=== PATIENT | male | born 1960 | race Caucasian/White ===

== ENCOUNTER 2017-11-19 11:36 | Inpatient (IN) ==
[2017-11-19] MEDS ORDERED: Nitroglycerin 0.4 MG TAB.SUBL SL ONE (11:48)
[2017-11-19] MEDS ORDERED: Furosemide 40 MG/4 ML VIAL IVP ONE (11:48)
[2017-11-19] MEDS ORDERED: Ipratropium/Albuterol Neb 3 ML ONE (11:53)
[2017-11-19] MEDS ORDERED: Ipratropium/Albuterol Neb 3 ML IH ONE (11:53)
--- NOTE | 2017-11-19 11:57 | Emergency Department Note ---
Disposition Clinical Impression: Hypoxia, COPD exacerbation, Respiratory distress Disposition: Admitted As Inpatient Condition: Good Forms: ED Satisfaction Letter Time of Disposition: 13:42 SOB HPI - General Chief Complaint: ED Shortness of Breath/Dyspnea Stated Complaint: RO Time Seen by Provider: 11/19/17 11:39 Source: patient, EMS Limitations: no limitations Nursing Notes Reviewed: Yes Vital Signs Reviewed: Yes - History of Present Illness 57 year old male presents to the ED with complaints of dyspnea from urfent care. He has never been fomrally diagnosed with CHF although he appears fluid overloaded with rhonchi present on exam. I took report from Dr. Rodrigues and states that his CXR for them was negtive and flu negative. Margarita fantes he has chronic cellulitis on his LLE and it is at [facility]. He denies fevers, nausea, vomitting, but was hypoxic for the squad at 80% and appears in mild distress although he is able t start sentences he beomes dyspneic while talking. Currently at 92% on NRB. He does have a history of COPD and wears a Cpap at night only. morbidly obese - Related Data Home Medications Medication Instructions Recorded Confirmed Albuterol Neb [Proventil Neb] 2.5 mg IH TID 11/19/17 11/19/17 Aspirin [Lo-Dose Aspirin EC] 81 mg PO DAILY 11/19/17 11/19/17 Furosemide [Lasix] 20 mg PO BID 11/19/17 11/19/17 Lisinopril [Zestril] 20 mg PO DAILY 11/19/17 11/19/17 Simvastatin [Zocor] 20 mg PO HS 11/19/17 11/19/17 Tramadol HCl [Ultram] 50 mg PO QID PRN 11/19/17 11/19/17 metFORMIN [Glucophage] 500 mg PO BIDWM 11/19/17 11/19/17 Allergies Allergy/AdvReac Type Severity Reaction Status Date / Time No Known Allergies Allergy Verified 11/19/17 10:13 Constitutional: Denies: fever, chills, weakness, weight change Eyes: Denies: eye pain, eye discharge, vision change ENT ED: Denies: ear pain, throat pain, dental pain, hearing loss, epistaxis, congestion, dysphagia Cardiovascular: Denies: chest pain, palpitations, dyspnea on exertion, edema, syncope Respiratory: Reports: dyspnea. Denies: cough, wheezes, hemoptysis, stridor Gastrointestinal: Denies: abdominal pain, nausea, vomiting, diarrhea, constipation, hematemesis, melena, hematochezia Genitourinary: Denies: urgency, dysuria, frequency, hematuria Musculoskeletal: Denies: back pain, neck pain, arthralgia, myalgia Integumentary: Denies: rash, abrasion, lesions Neurological: Denies: headache, weakness, numbness, paresthesias, confusion, abnormal gait, vertigo Psychiatric: Denies: anxiety, depression, suicidal thoughts, homicidal thoughts , auditory hallucinations, visual hallucinations Endocrine: Denies: fatigue Hematological/Lymphatic: Denies: easy bleeding, easy bruising Allergic/Immunologic: Denies: facial swelling, urticaria Past Medical History - Past Medical History Medical history: Reports: arthritis, COPD, other Psychiatric history: Reports: no psych history - Social History Smoking Status: Former smoker Smokeless Tobacco Status: Yes Alcohol use: Reports: none Drug use: Reports: none Physical Exam - General Limitations: no limitations General appearance: alert, in distress, obese - Head Head exam: atraumatic, normocephalic, normal inspection - Eye Eye exam: Present: normal appearance, PERRL, EOMI - Expanded Eye Exam Pupils: Bilateral: regular, round, reactive - ENT ENT exam: normal exam, normal oropharynx, mucous membranes moist - Expanded ENT Exam External ear exam: Present: normal external inspection Mouth exam: Present: normal external inspection Teeth exam: Present: normal inspection Throat exam: Present: normal inspection - Neck Neck exam: Present: normal inspection, full ROM, trachea midline - Chest Chest inspection: Present: normal inspection, symmetric chest wall rise - Respiratory Respiratory exam: Present: normal lung sounds bilaterally - Cardiovascular Cardiovascular exam: Present: regular rate, normal rhythm, normal heart sounds - Abdominal Exam Abdominal exam: Present: soft, Non-Tender, other (abdominal swelling present although not tympanic and not a surgical abdomen). Absent: tenderness, distention, guarding, rebound, rigidity - Extremities Exam Extremities exam: Present: normal inspection, full ROM. Absent: tenderness, pedal edema - Expanded Upper Extremity Exam Shoulder exam: Present: normal inspection, full ROM Arm exam: Present: normal inspection, full ROM Elbow exam: Present: normal inspection, full ROM Forearm/Wrist exam: Present: normal inspection, full ROM Hand exam: Present: normal inspection, full ROM Vascular exam: Normal: capillary refill, radial pulse - Expanded Lower Extremity Exam Hip/Pelvis exam: Present: normal inspection, full ROM Upper leg exam: Present: normal inspection, full ROM Knee exam: Present: normal inspection, full ROM, swelling (bilateral pedal edema , with chronic appear venou statis cellulitis) Lower leg exam: Present: normal inspection, full ROM Ankle exam: Present: normal inspection, full ROM Foot/toe exam: Present: normal inspection, full ROM Neurovascular/Tendon exam: Absent: motor deficit, sensory deficit, tendon deficit - Back Exam Back exam: Present: normal inspection, full ROM. Absent: tenderness - Neurological Exam Neurological exam: Present: alert, oriented X3 - Expanded Neurological Exam Patient oriented to: Present: person, place, time Coma Scale Eye Opening: Spontaneous Coma Scale Motor Response: Obeys Commands Coma Scale Verbal Response: Oriented Coma Scale Total: 15 - Psychiatric Psychiatric exam: Present: normal affect, normal mood - Skin Skin exam: Present: warm, dry, intact, normal color Course Course Narrative: we will place patient on bipap and finsih duoneb tretment in addition to complete cardiovasuclar wokrup and admit to medicine - Consultations Consultation #1: discusse case with Dr. Villa and he accepts patient for admission. Herlindanet is agreeable to plan. Time: 13:42 Vital Signs Temperature 98.4 F 11/19/17 11:46 Pulse Rate 81 11/19/17 11:46 Respiratory Rate 20 11/19/17 11:46 Blood Pressure 123/84 11/19/17 11:46 O2 Sat by Pulse Oximetry 98 11/19/17 11:46 Temperature 98.4 F 11/19/17 11:46 Pulse Rate 92 11/19/17 13:22 Respiratory Rate 22 11/19/17 13:22 Blood Pressure 134/96 11/19/17 13:22 O2 Sat by Pulse Oximetry 94 11/19/17 13:22 Oxygen Delivery Oxygen Delivery Bipap Shortness of Breath/Dyspnea - Medical Records Medical records reviewed: Yes I reviewed the patient's medical records. - Lab Data Lab results reviewed: Yes I reviewed the patient's lab results. Result diagrams: 11/19/17 12:11 11/19/17 12:11 Lab Results 11/19/17 11/19/17 11/19/17 Range/Units 12:11 12:11 12:11 WBC (4.3-11.1) K/mcL RBC (4.19-5.50) M/mcL Hgb (12.9-16.9) g/dL Hct (37.5-50.1) % MCV (83.0-100.0) fL MCH (28.0-33.3) pg MCHC (31.6-35.5) g/dL RDW (11.5-14.5) % Plt Count (140-400) K/mcL MPV (9.4-12.4) fL Immature Gran % (0-4) % Seg Neutrophils % % Lymphocytes % % Monocytes % % Eosinophils % % Basophils % % Neutrophils # (1.6-8.9) K/mcL Lymphocytes # (0.6-4.6) K/mcL Monocytes # (0.0-1.3) K/mcL Eosinophils # (0.0-0.6) K/mcL Basophils # (0.0-0.2) K/mcL PT 12.0 (9.4-12.1) Seconds INR 1.1 APTT 31.0 (26.0-36.0) Seconds Sodium (136-145) mEq/L Potassium (3.5-5.1) mEq/L Chloride (98-107) mEq/L Carbon Dioxide (23-29) mEq/L BUN (6-20) mg/dL Creatinine (0.70-1.30) mg/dL Est GFR ( Amer) (> 60) Est GFR (Non-Af Amer) (> 60) BUN/Creatinine Ratio (6-26) Glucose (70-105) mg/dL Calculated Osmolality (280-300) Calcium (8.6-10.3) mg/dL Total Bilirubin 0.5 (0.3-1.0) mg/dL Direct Bilirubin 0.1 (0.0-0.2) mg/dL Indirect Bilirubin 0.4 (0.0-1.2) mg/dL AST 18 (13-39) Units/L ALT 20 (7-52) Units/L Alkaline Phosphatase 80 (34-104) Units/L Troponin I (< 0.04) ng/mL B-Natriuretic Peptide 62 (Less than 100) pg/mL Serum Total Protein 7.6 (6.4-8.9) g/dL Albumin 4.2 (3.5-5.7) g/dL Globulin 3.4 (2.4-3.5) g/dL Albumin/Globulin Ratio 1.2 (1.1-2.2) Lipase 10 L (11-82) Units/L 11/19/17 11/19/17 11/19/17 Range/Units 12:11 12:11 12:11 WBC 7.6 (4.3-11.1) K/mcL RBC 4.85 (4.19-5.50) M/mcL Hgb 13.9 (12.9-16.9) g/dL Hct 45.0 (37.5-50.1) % MCV 92.8 (83.0-100.0) fL MCH 28.7 (28.0-33.3) pg MCHC 30.9 L (31.6-35.5) g/dL RDW 14.4 (11.5-14.5) % Plt Count 306 (140-400) K/mcL MPV 10.3 (9.4-12.4) fL Immature Gran % 0.4 (0-4) % Seg Neutrophils % 82.7 % Lymphocytes % 11.0 % Monocytes % 4.5 % Eosinophils % 1.1 % Basophils % 0.3 % Neutrophils # 6.3 (1.6-8.9) K/mcL Lymphocytes # 0.8 (0.6-4.6) K/mcL Monocytes # 0.3 (0.0-1.3) K/mcL Eosinophils # 0.1 (0.0-0.6) K/mcL Basophils # 0.0 (0.0-0.2) K/mcL PT (9.4-12.1) Seconds INR APTT (26.0-36.0) Seconds Sodium 136 (136-145) mEq/L Potassium 4.5 (3.5-5.1) mEq/L Chloride 100 (98-107) mEq/L Carbon Dioxide 28 (23-29) mEq/L BUN 10 (6-20) mg/dL Creatinine 0.57 L (0.70-1.30) mg/dL Est GFR ( Amer) > 60 (> 60) Est GFR (Non-Af Amer) > 60 (> 60) BUN/Creatinine Ratio 18 (6-26) Glucose 163 H (70-105) mg/dL Calculated Osmolality 285 (280-300) Calcium 9.4 (8.6-10.3) mg/dL Total Bilirubin (0.3-1.0) mg/dL Direct Bilirubin (0.0-0.2) mg/dL Indirect Bilirubin (0.0-1.2) mg/dL AST (13-39) Units/L ALT (7-52) Units/L Alkaline Phosphatase (34-104) Units/L Troponin I < 0.03 (< 0.04) ng/mL B-Natriuretic Peptide (Less than 100) pg/mL Serum Total Protein (6.4-8.9) g/dL Albumin (3.5-5.7) g/dL Globulin (2.4-3.5) g/dL Albumin/Globulin Ratio (1.1-2.2) Lipase (11-82) Units/L - Radiology Data Radiology results reviewed: Yes I reviewed the patient's radiology results. - EKG Data EKG attestation: Yes I reviewed and interpreted this EKG. EKG results narrative: NSR with rate of 84. NO STEMI. occasional PVCs. normla intervals. no change from old ekg
[2017-11-19 12:19] LABS: Basophils % 0.3 %; Eosinophils # 0.1 K/mcL (0.0-0.6); Eosinophils % 1.1 %; Hemoglobin 13.9 g/dL (12.9-16.9); Immature Granulocytes % 0.4 % (0-4); Lymphocytes # 0.8 K/mcL (0.6-4.6); Mean Corpuscular HGB Conc 30.9 g/dL (31.6-35.5); Mean Corpuscular Hemoglobin 28.7 pg (28.0-33.3); Mean Corpuscular Volume 92.8 fL (83.0-100.0); Mean Platelet Volume 10.3 fL (9.4-12.4); Monocytes # 0.3 K/mcL (0.0-1.3); Monocytes % 4.5 %; Neutrophils # 6.3 K/mcL (1.6-8.9); Platelet Count 306 K/mcL (140-400); Red Blood Count 4.85 M/mcL (4.19-5.50); Red Cell Distribution Width 14.4 % (11.5-14.5); Segmented Neutrophils % 82.7 %
[2017-11-19 12:27] LABS: INR 1.1
[2017-11-19 12:35] LABS: BUN/Creatinine Ratio 18 (6-26); Blood Urea Nitrogen 10 mg/dL (6-20); Calcium 9.4 mg/dL (8.6-10.3); Carbon Dioxide 28 mEq/L (23-29); Chloride 100 mEq/L (98-107); Glucose 163 mg/dL (70-105); Osmolality,Calculated 285 (280-300); Potassium 4.5 mEq/L (3.5-5.1); Sodium 136 mEq/L (136-145); eGFR For African Americans > 60 (> 60); eGFR For Non-African Americans > 60 (> 60)
[2017-11-19 12:36] LABS: Albumin 4.2 g/dL (3.5-5.7); Albumin/Globulin Ratio 1.2 (1.1-2.2); Bilirubin,Direct 0.1 mg/dL (0.0-0.2); Bilirubin,Indirect 0.4 mg/dL (0.0-1.2); Bilirubin,Total 0.5 mg/dL (0.3-1.0); Globulin 3.4 g/dL (2.4-3.5); Total Protein 7.6 g/dL (6.4-8.9)
[2017-11-19] MEDS ORDERED: cefTRIAXone 2,000 MG in Water for inj. (sterile) 20 ML IVP ONE (13:51)
--- NOTE | 2017-11-19 14:33 | Electrocardiograph Report ---
[address] [address] Test Date: 2017-11-19 Pat Name: Kristian Nieves Department: 102 Room: [facility] Gender: M Rn Wound Care: Ghulam : 1960 Requested By: Laura Quintanilla Order Number: [id number] Reading MD: Starla Allison Measurements Intervals [place] Rate: 84 P: 47 IN: 188 QRS: -24 QRSD: 127 T: 57 QT: 395 QTc: 435 Interpretive Statements SINUS RHYTHM WITH OCCASIONAL VENTRICULAR PREMATURE COMPLEXES BORDERLINE LEFT AXIS DEVIATION [QRS AXIS < -20] MODERATE INTRAVENTRICULAR CONDUCTION DELAY [110+ ms QRS DURATION] Electronically Signed On 11-19-2017 14:32:06 EST by Starla Allison
[2017-11-19] MEDS ORDERED: Naloxone 0.4 MG/ML INJ IVP PRN (15:07)
[2017-11-19] MEDS ORDERED: traMADol 50 MG TABLET PO PRN (15:14)
[2017-11-19] MEDS ORDERED: D5% in Water 1,000 ML IVC PRN (15:18)
[2017-11-19] MEDS ORDERED: *HR* Dextrose 50 % in Water (Syg) 50 ML SYRINGE IVP PRN (15:18)
[2017-11-19] MEDS ORDERED: Dextrose Gel 15 GM/37.5 ML TUBE PO PRN ×2 (15:18)
[2017-11-19 15:49] LABS: ABG Base Excess 4 mEq/L (-2 to 3); ABG HCO3 32 mEq/L (21-27); ABG Oxygen Saturation 97 % (95-98); ABG PCO2 64 mmHg (35-45); ABG PH 7.31 pH Units (7.32-7.45); ABG PO2 99 mmHg (85-104); ABG TCO2 34 mEq/L (20-26)
[2017-11-19] MEDS ORDERED: Albuterol 2.5 MG/3 ML NEBULIZER ONE (15:51)
[2017-11-19] MEDS: Ipratropium Neb 0.5 MG NEBULIZER IH SCH ×2 (15:52→21:12)
[2017-11-19] MEDS: Albuterol 2.5 MG/3 ML NEBULIZER IH SCH (15:53)
--- NOTE | 2017-11-19 16:39 | Internal Med History&Physical ---
<Aldo Ring - Last Filed: 11/19/17 19:36> Date of Encounter: 11/19/17 Time of Encounter: 14:30 Assessment and Plan (1) Acute exacerbation of chronic obstructive pulmonary disease (COPD) Current visit: Yes Status: Acute Acute exacerbation of COPD. Denies hx of CHF. BNP 62 on admission. 1-V CXR today shows stable chest with persistent bibasilar opacities. Solumedrol 60 mg Q6. ABGs ordered. Ipratropium bromide nebulizer every 4 scheduled. Ceftriaxone 2000 mg daily for bronchitis infection coverage. Supplemental O2 w/titration and SpO2 monitoring. BiPap PRN. CPAP HS. Continuous tele. Respiratory infection panel ordered. Will adjust abx coverage based on panel results if warranted. Pt. discussed w/Dr. Villa who is in agreement w/plan of care. Pt. is high risk for further morbidity based on current hypoxia, respiratory distress, history of long-term COPD exacerbations complicated by bronchitis, and risk factors of previous tobacco abuse, morbid obesity, HTN, and HLD. Inpatient. (2) Hypoxia Current visit: Yes Status: Acute Acute hypoxia related to current acute exacerbation of COPD. SPO2 in the mid 80s according to EMS prior to arrival ED. Patient placed on BiPAP in ED and will be continued as needed. ABGs ordered stat. Continue CPAP at bedtime. Ipratropium bromide nebulizers 0.5 every 4 scheduled. Continue patient's inhalers. (3) Arthritis Current visit: Yes Status: Chronic Hx of chronic arthritis. Continue pts. Tramadol and monitor for pain. (4) Diabetes Current visit: Yes Status: Chronic Recent diagnosis of diabetes controlled with oral antihyperglycemic medications. Will hold Glucophage and administer low-dose correction insulin sliding scale with hypoglycemic protocol. BG checks before meals at bedtime. A1c in a.m. labs. 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 Lipid panel in a.m. labs. Continue patient's simvastatin. Qualifiers: Hyperlipidemia type: pure hypercholesterolemia Qualified Code(s): E78.00 - Pure hypercholesterolemia, unspecified; E78.0 - Pure hypercholesterolemia (6) HTN (hypertension) Current visit: Yes Status: Chronic Hx of chronic HTN. Monitor patient vital signs. Continue patient's lisinopril. Qualifiers: Hypertension type: essential hypertension Qualified Code(s): I10 - Essential (primary) hypertension (7) DVT prophylaxis Current visit: Yes Status: Acute Heparin 5000 units SQ every 8 for DVT prophylaxis. Monitor patient for signs of bleeding. Internal Medicine - H&P: HPI Chief complaint: SOB/Dyspnea Admitted From: Emergency Dept Plans for Post Hospital Care: Home History of present illness: Mr. Nieves is a 57 year old male with medical history of arthritis, HTN, HLD, COPD, and new diagnosis of diabetes controlled with oral antihyperglycemic medications presents from the ED with chief complaint of shortness of breath and dyspnea for the past week which became worse over the weekend and continued to worsen yesterday. The ports history of chronic cellulitis of the LLE. Patient reports nebulizer use and CPAP at night at home but denies consistent O2 use. Denies history of CHF. Patient reports shortness of breath, dyspnea, chronic pedal edema bilaterally, chronic cellulitis of the LLE, and unsteadiness w/ambulation but denies recent illness, fever, chills, nausea, vomiting, diarrhea, constipation, chest pain, palpitations, headache, changes in vision, unusual bleeding, abdominal pain, numbness, tingling, dizziness, lightheadedness, presyncope, or syncope. Past Med Surg Social Fam HX - Past Medical History Source: patient, old records reviewed, obtained from family Medical history: arthritis, COPD, diabetes (Newly diagnosed), other Psychiatric history: no psych history - Social History Smoking Status: Former smoker Packs per day: 1/2 PPD - Reports quitting 35 years ago Smokeless Tobacco Status: Yes Alcohol use: none Drug use: none Current living situation: Home Activity Level: Independent ambulation, Uses cane/walker Recent Out of Country Travel Within the Last 8 Weeks: No Exposure or Possible Exposure to Illness During Travel: No - Family History Father Race: Family Member Ethnicity: Non- Living Status: Still Living Hx Family Musculoskeletal Disorders: Yes (Knee replacement) Mother Race: Family Member Ethnicity: Non- Living Status: Age at : 70 Cause of : Cancer Hx Family Cardiac Disorders: Yes (Stroke) Hx Family Respiratory Disorders: Yes (Cyst in lung) Hx Family Cancer: Yes Brother Race: Family Member Ethnicity: Non- Living Status: Still Living Hx Family Medical Disorders: No Sister Race: Family Member Ethnicity: Non- Living Status: Still Living Hx Family Respiratory Disorders: Yes (COPD) Internal Medicine - H&P: Meds Albuterol Neb [Proventil Neb] 2.5 mg IH TID 11/19/17 [History] Aspirin [Lo-Dose Aspirin EC] 81 mg PO DAILY 11/19/17 [History] Furosemide [Lasix] 20 mg PO BID 11/19/17 [History] Lisinopril [Zestril] 20 mg PO DAILY 11/19/17 [History] Simvastatin [Zocor] 20 mg PO HS 11/19/17 [History] Tramadol HCl [Ultram] 50 mg PO QID PRN 11/19/17 [History] metFORMIN [Glucophage] 500 mg PO BIDWM 11/19/17 [History] 3 Allergy/AdvReac Type Severity Reaction Status Date / Time No Known Allergies Allergy Verified 11/19/17 10:13 All Systems PM: A 10-system review of systems was performed and is negative for pertinent findings except as documented above in the HPI. - Constitutional Constitutional: as per HPI, other (Unsteadiness with ambulation), no chills, no fever(s), no night sweats - EENT Eyes: no change in vision, no discharge, no pain, no photophobia Ears: no ear discharge, no ear pain, no tinnitus Nose, mouth and throat: no dysphagia, no nasal discharge, no neck pain, no sore throat - Breasts Breasts: as per HPI - Cardiovascular Cardiovascular ROS IM: as per HPI, dyspnea, dyspnea on exertion, edema (Chronic bilateral pedal edema), orthopnea, no chest pain, no diaphoresis, no lightheadedness, no palpitations, no syncope - Respiratory Respiratory: as per HPI, dyspnea, dyspnea on exertion, wheezing, no cough, no excessive phlegm production - Gastrointestinal Gastrointestinal: no abdominal pain, no diarrhea, no hematemesis, no hematochezia, no melena, no nausea, no vomiting - Genitourinary Genitourinary ROS male: as per HPI - Musculoskeletal Musculoskeletal ROS IM: no numbness, no tingling - Integumentary Integumentary IM: erythema (RLE and LLE), no rash, no unusual bruising - Neurological Neurological ROS: as per HPI, disequilibrium, no confusion, no convulsions, no focal weakness, no numbness, no tingling, no tremor(s) - Psychiatric Psychiatric: as per HPI - Endocrine Endocrine IM: as per HPI - Hematologic/Lymphatic Hematologic/Lymphatic: no easy bruising - Allergic/Immunologic Allergic/Immunologic: as per HPI - Constitutional Vitals: Temp Pulse Resp BP Pulse Ox 97.8 F 83 27 122/75 97 11/19/17 14:47 11/19/17 14:47 11/19/17 15:52 11/19/17 14:47 11/19/17 15:52 General appearance: Present: cooperative, A&O X 3, morbidly obese, pleasant, severe distress (Respiratory), answers questions appropriately - Head Head exam: Present: atraumatic, normocephalic - Eye Eye exam: Present: PERRL, conjuntiva pink, sclera anicteric Pupils: Present: PERRL - ENT ENT exam: Present: normal exam - Neck Neck exam general surgery: Present: normal inspection, supple, trachea midline. Absent: lymphadenopathy - Respiratory Respiratory exam: Present: accessory muscle use, respiratory distress, wheezes ( Bilaterally all lobes) - Cardiovascular Cardiovascular exam: Present: RRR, +S1, +S2. Absent: diastolic murmur, gallop, rubs, systolic murmur - GI/Abdominal GI/Abdominal exam: Present: normal bowel sounds, soft, no peritoneal signs. Absent: distended, tenderness - Rectal Rectal exam: Present: deferred - Additional comments: exam deferred. - Extremities Exam Extremities exam: Present: pedal edema (Bilateral pedal edema 2+ pitting), warm , radial pulses palpable and symmetrical. Absent: calf tenderness, cyanotic - Back Exam Back exam: Present: normal inspection - Neurological Exam Neurological exam: Present: CN II-XII intact, oriented X3, no focal deficits. Absent: pronater drift, facial droop, speech deficit - Psychiatric Psychiatric exam: Present: normal affect, normal mood - Skin Skin exam: Present: dry, erythema (Bilateral LEs), intact Internal Med - H&P Results - Labs CBC & Chem 7: 11/19/17 12:11 11/19/17 12:11 - ABG Interpretation ABG results: 11/19/17 15:45 ABG pH 7.31 L ABG pCO2 64 H ABG pO2 99 ABG HCO3 32 H ABG Total CO2 34 H ABG O2 Saturation 97 ABG Base Excess 4 H - EKG Data EKG shows normal: sinus rhythm - EKG Data Prior EKG available for review: no EKG comments: 11/19/17 16:49 EKG dated 11/19/17 shows sinus rhythm with occasional ventricular premature complexes, borderline left axis deviation, moderate intraventricular conduction delay, borderline ECG. <Alo Villa - Last Filed: 11/19/17 23:03> Date of Encounter: 11/19/17 Internal Medicine - H&P: HPI History of present illness: Mr. Nieves is a 57 year old male All Systems PM: A 10-system review of systems was performed and is negative for pertinent findings except as documented above in the HPI. - Constitutional Vitals: Temp Pulse Resp BP Pulse Ox 96.8 F L 93 20 158/81 99 11/19/17 22:50 11/19/17 22:50 11/19/17 22:50 11/19/17 22:50 11/19/17 22:50 Internal Med - H&P Results - Labs CBC & Chem 7: 11/19/17 12:11 11/19/17 12:11 - ABG Interpretation ABG results: 11/19/17 15:45 ABG pH 7.31 L ABG pCO2 64 H ABG pO2 99 ABG HCO3 32 H ABG Total CO2 34 H ABG O2 Saturation 97 ABG Base Excess 4 H - Attending Attestation I have personally performed a face to face evaluation on this patient. I have reviewed and agree with the care plan. History and Exam by me shows: Patient presented to the hospital with evaluation of shortness of breath. On exam he is in [id number] distress due to dyspnea. He is on BiPAP. Lung exam reveals bilateral aspiratory wheezes. Plan: We will admit for COPD. We will treat him with IV steroids, inhaled bronchodilators and IV antibiotics to cover for COPD exacerbation and possible pneumonia.
[2017-11-19] MEDS: Furosemide 20 MG TABLET PO SCH (17:06)
[2017-11-19] MEDS: Insulin LISPRO 300 UNITS/3 ML VIAL SQ SCH ×2 (17:06→23:14)
[2017-11-19] MEDS: methylPREDNISolone 125 MG/2 ML VIAL IVP SCH ×2 (17:06→22:58)
[2017-11-19] MEDS: *HR* Heparin 5,000 UNIT/ML VIAL SQ SCH (22:59)
[2017-11-20] MEDS: Ipratropium Neb 0.5 MG NEBULIZER IH SCH ×6 (00:35→19:51)
[2017-11-20] MEDS: Albuterol 2.5 MG/3 ML NEBULIZER IH SCH ×3 (00:35→15:51)
[2017-11-20] MEDS: Azithromycin 500 MG in D5% in Water 250 ML IVPB SCH (02:00)
[2017-11-20] MEDS: methylPREDNISolone 125 MG/2 ML VIAL IVP SCH ×3 (06:49→16:54)
[2017-11-20] MEDS: *HR* Heparin 5,000 UNIT/ML VIAL SQ SCH ×3 (06:49→21:50)
[2017-11-20] MEDS: Aspirin Enteric Coated 81 MG Tablet PO SCH (08:55)
[2017-11-20] MEDS: Furosemide 20 MG TABLET PO SCH ×2 (08:55→16:54)
[2017-11-20] MEDS: Lisinopril 20 MG TABLET PO SCH (08:55)
[2017-11-20] MEDS: Insulin LISPRO 300 UNITS/3 ML VIAL SQ SCH ×4 (08:56→21:59)
[2017-11-20 09:33] LABS: Alanine Aminotransferase 19 Units/L (7-52); Albumin 4.2 g/dL (3.5-5.7); Albumin/Globulin Ratio 1.2 (1.1-2.2); Alkaline Phosphatase 75 Units/L (34-104); Aspartate Amino Transferase 15 Units/L (13-39); BUN/Creatinine Ratio 21 (6-26); Bilirubin,Total 0.4 mg/dL (0.3-1.0); Blood Urea Nitrogen 14 mg/dL (6-20); Calcium 9.3 mg/dL (8.6-10.3); Carbon Dioxide 31 mEq/L (23-29); Chloride 97 mEq/L (98-107); Chol/HDL Ratio 3.6 (0-4.9); Cholesterol 170 mg/dL (< 200); Globulin 3.4 g/dL (2.4-3.5); Glucose 267 mg/dL (70-105); HDL Cholesterol 47 mg/dL (40-59); LDL Cholesterol,Calculated 104 mg/dL (0-99); Magnesium 2.3 mg/dL (1.6-2.6); Osmolality,Calculated 290 (280-300); Potassium 4.3 mEq/L (3.5-5.1); Sodium 135 mEq/L (136-145); Total Protein 7.6 g/dL (6.4-8.9); Triglycerides 97 mg/dL (< 150); eGFR For African Americans > 60 (> 60); eGFR For Non-African Americans > 60 (> 60)
[2017-11-20 09:36] LABS: Hematocrit 44.6 % (37.5-50.1); Hemoglobin 13.7 g/dL (12.9-16.9); Immature Granulocytes % 0.6 % (0-4); Lymphocytes # 0.7 K/mcL (0.6-4.6); Lymphocytes % 10.1 %; Mean Corpuscular HGB Conc 30.7 g/dL (31.6-35.5); Mean Corpuscular Volume 94.3 fL (83.0-100.0); Mean Platelet Volume 10.7 fL (9.4-12.4); Monocytes # 0.1 K/mcL (0.0-1.3); Monocytes % 2.1 %; Neutrophils # 5.8 K/mcL (1.6-8.9); Platelet Count 319 K/mcL (140-400); Red Blood Count 4.73 M/mcL (4.19-5.50); Red Cell Distribution Width 14.4 % (11.5-14.5); Segmented Neutrophils % 87.2 %
[2017-11-20 10:24] LABS: Adenovirus Not Detected (Not Detect); Bordetella Pertussis Not Detected (Not Detect); Chlamydophila pneumoniae Not Detected (Not Detect); Coronavirus 229E Not Detected (Not Detect); Coronavirus HKU1 Not Detected (Not Detect); Coronavirus NL63 Not Detected (Not Detect); Coronavirus OC43 Not Detected (Not Detect); Human Metapneumovirus Not Detected (Not Detect); Human Rhinovirus/Enterovirus Not Detected (Not Detect); Influenza A Subtype 2009 H1 Not Detected (Not Detect); Influenza A Untypeable Not Detected (Not Detect); Influenza B Not Detected (Not Detect); Mycoplasma pneumoniae Not Detected (Not Detect); Parainfluenza Virus 1 Not Detected (Not Detect); Parainfluenza Virus 2 Not Detected (Not Detect); Parainfluenza Virus 3 Not Detected (Not Detect); Parainfluenza Virus 4 Not Detected (Not Detect); Respiratory Syncytial Virus Not Detected (Not Detect)
--- NOTE | 2017-11-20 11:24 | Internal Med Progress Note ---
<Fidencio Echols - Last Filed: 11/20/17 11:24> Date of Encounter: 11/20/17 Time of Encounter: 11:22 - Assessment and plan (1) Acute exacerbation of chronic obstructive pulmonary disease (COPD) Current Visit: Yes Status: Acute Assessment and plan: Solu-Medrol 60 mg every 6 hours Duoneb every 4 hours BiPAP available as needed for the patient CPAP at night. Patient is requiring 4-1/2 L to maintain oxygen saturation. Patient denies use of home oxygen use. (2) Hypoxia Current Visit: Yes Status: Acute Assessment and plan: Patient currently on 4.5 L nasal cannula to maintain oxygen saturation in mid 90s (3) Diabetes Current Visit: Yes Status: Chronic Assessment and plan: Patient has insulin ordered for glucose control while in the hospital. Qualifiers: Diabetes mellitus type: type 2 Diabetes mellitus complication detail: with other skin complication Diabetes mellitus terminal operator insulin use: without chcf use (4) HLD (hyperlipidemia) Current Visit: Yes Status: Chronic Assessment and plan: Chronic history of hyperlipidemia The patient's lipid panel seems to be well-controlled Continue patient's simvastatin at this time. Qualifiers: Hyperlipidemia type: pure hypercholesterolemia Qualified Code(s): E78.00 - Pure hypercholesterolemia, unspecified; E78.0 - Pure hypercholesterolemia (5) HTN (hypertension) Current Visit: Yes Status: Chronic Assessment and plan: The possible history of chronic hypertension. Continue patient's home medication of lisinopril. Qualifiers: Hypertension type: essential hypertension Qualified Code(s): I10 - Essential (primary) hypertension (6) Arthritis Current Visit: Yes Status: Chronic Assessment and plan: Chronic history of arthritis Tramadol ordered for pain control (7) DVT prophylaxis Current Visit: Yes Status: Acute Assessment and plan: Patient is on heparin 5000 units subcutaneous every 8 hours for DVT prophylaxis. - Subjective Interval history: The patient states that he is slowly getting better but is more short of breath than normal. Patient states that he only uses CPAP at night when he sleeps. States that he does not wear oxygen at home. Patient states that he has been coughing with a small amount of phlegm but is better than when he originally came into the emergency department - Constitutional Vitals: Temp Pulse Resp BP Pulse Ox 98.7 F 89 16 152/97 94 11/20/17 07:50 11/20/17 07:50 11/20/17 07:50 11/20/17 07:50 11/20/17 07:50 General appearance: Present: cooperative, A&O X 3, morbidly obese, pleasant, severe distress (Respiratory), answers questions appropriately - Head Head exam: Present: atraumatic, normocephalic - Neck Neck exam general surgery: Present: full ROM, normal inspection, trachea midline - Respiratory Respiratory exam: Present: prolonged expiratory phase, wheezes (mild) - Cardiovascular Cardiovascular exam: Present: RRR, +S1, +S2. Absent: diastolic murmur, gallop, rubs, systolic murmur - GI/Abdominal GI/Abdominal exam: Present: normal bowel sounds, soft, no peritoneal signs. Absent: distended, tenderness - Extremities Exam Extremities exam: Present: pedal edema (2+ pitting edema bilateral lower extremities), warm. Absent: tenderness - Neurological Exam Neurological exam: Present: alert, oriented X3, no focal deficits. Absent: facial droop, speech deficit - Psychiatric Psychiatric exam: Present: normal affect, normal mood - Skin Skin exam: Present: dry, erythema (To bilateral lower extremities), intact Internal Medicine: Result - Labs CBC & Chem 7: 11/20/17 08:55 11/20/17 08:55 Labs: Short CBC 11/20/17 Range/Units 08:55 WBC 6.7 (4.3-11.1) K/mcL Hgb 13.7 (12.9-16.9) g/dL Hct 44.6 (37.5-50.1) % Plt Count 319 (140-400) K/mcL Neutrophils # 5.8 (1.6-8.9) K/mcL BMP 11/20/17 08:55 Sodium 135 L Potassium 4.3 Chloride 97 L Carbon Dioxide 31 H BUN 14 Creatinine 0.67 L Glucose 267 H Calcium 9.3 Liver Function 11/20/17 Range/Units 08:55 Total Bilirubin 0.4 (0.3-1.0) mg/dL AST 15 (13-39) Units/L ALT 19 (7-52) Units/L Alkaline Phosphatase 75 (34-104) Units/L Albumin 4.2 (3.5-5.7) g/dL - ABG Interpretation ABG results: ABG ABG pH 7.31 pH Units (7.32-7.45) L 11/19/17 15:45 ABG pCO2 64 mmHg (35-45) H 11/19/17 15:45 ABG pO2 99 mmHg (85-104) 11/19/17 15:45 ABG O2 Saturation 97 % (95-98) 11/19/17 15:45 PT/INR, D-dimer PT 12.0 Seconds (9.4-12.1) 11/19/17 12:11 Consult Discharge Plan - Plan Referrals: Jose F Valle MD [Primary Care Provider] - <Kameron Saeed H - Last Filed: 11/20/17 11:56> Date of Encounter: 11/20/17 - Constitutional Vitals: Temp Pulse Resp BP Pulse Ox 97.8 F 89 16 114/72 91 11/20/17 11:41 11/20/17 11:41 11/20/17 11:22 11/20/17 11:41 11/20/17 11:22 Internal Medicine: Result - Labs CBC & Chem 7: 11/20/17 08:55 11/20/17 08:55 Labs: Short CBC 11/20/17 Range/Units 08:55 WBC 6.7 (4.3-11.1) K/mcL Hgb 13.7 (12.9-16.9) g/dL Hct 44.6 (37.5-50.1) % Plt Count 319 (140-400) K/mcL Neutrophils # 5.8 (1.6-8.9) K/mcL BMP 11/20/17 08:55 Sodium 135 L Potassium 4.3 Chloride 97 L Carbon Dioxide 31 H BUN 14 Creatinine 0.67 L Glucose 267 H Calcium 9.3 Liver Function 11/20/17 Range/Units 08:55 Total Bilirubin 0.4 (0.3-1.0) mg/dL AST 15 (13-39) Units/L ALT 19 (7-52) Units/L Alkaline Phosphatase 75 (34-104) Units/L Albumin 4.2 (3.5-5.7) g/dL - ABG Interpretation ABG results: ABG ABG pH 7.31 pH Units (7.32-7.45) L 11/19/17 15:45 ABG pCO2 64 mmHg (35-45) H 11/19/17 15:45 ABG pO2 99 mmHg (85-104) 11/19/17 15:45 ABG O2 Saturation 97 % (95-98) 11/19/17 15:45 PT/INR, D-dimer PT 12.0 Seconds (9.4-12.1) 11/19/17 12:11 - Attending Attestation Acute hypoxic hypercapnic respiratory failure secondary to acute COPD exacerbation due to community-acquired pneumonia, unknown agent Continue Rocephin and azithromycin a number 2 Solu-Medrol, Atrovent inhaled, oxygen therapy and BiPAP as needed Left lower extremity chronic cellulitis Morbid obesity I examined this patient and my medical decision-making was reviewed with the Resident Physician. I agree with the documented findings, disposition and treatment plan as described except to the extent set forth below.
[2017-11-20] MEDS ORDERED: Miconazole 2% ointment 114 GM TUBE TP SCH (13:30)
[2017-11-20] MEDS ORDERED: cefTRIAXone 2,000 MG in Water for inj. (sterile) 20 ML 20 ML IVP SCH (14:00)
[2017-11-21] MEDS: Albuterol 2.5 MG/3 ML NEBULIZER IH SCH ×3 (00:08→15:32)
[2017-11-21] MEDS: Ipratropium Neb 0.5 MG NEBULIZER IH SCH ×5 (00:09→15:32)
[2017-11-21] MEDS: methylPREDNISolone 125 MG/2 ML VIAL IVP SCH ×2 (00:23→06:06)
[2017-11-21] MEDS: Azithromycin 500 MG in D5% in Water 250 ML IVPB SCH (00:23)
[2017-11-21 03:15] LABS: Hematocrit 42.8 % (37.5-50.1); Immature Granulocytes % 0.4 % (0-4); Lymphocytes # 0.4 K/mcL (0.6-4.6); Lymphocytes % 5.9 %; Mean Corpuscular HGB Conc 30.4 g/dL (31.6-35.5); Mean Corpuscular Hemoglobin 28.4 pg (28.0-33.3); Mean Corpuscular Volume 93.7 fL (83.0-100.0); Mean Platelet Volume 10.7 fL (9.4-12.4); Monocytes # 0.3 K/mcL (0.0-1.3); Monocytes % 3.9 %; Neutrophils # 6.8 K/mcL (1.6-8.9); Platelet Count 304 K/mcL (140-400); Red Blood Count 4.57 M/mcL (4.19-5.50); Red Cell Distribution Width 14.3 % (11.5-14.5); Segmented Neutrophils % 89.8 %
[2017-11-21 03:33] LABS: Alanine Aminotransferase 20 Units/L (7-52); Albumin 3.9 g/dL (3.5-5.7); Albumin/Globulin Ratio 1.2 (1.1-2.2); Alkaline Phosphatase 66 Units/L (34-104); Aspartate Amino Transferase 17 Units/L (13-39); BUN/Creatinine Ratio 31 (6-26); Bilirubin,Total 0.3 mg/dL (0.3-1.0); Blood Urea Nitrogen 19 mg/dL (6-20); Calcium 9.1 mg/dL (8.6-10.3); Carbon Dioxide 32 mEq/L (23-29); Chloride 98 mEq/L (98-107); Globulin 3.2 g/dL (2.4-3.5); Glucose 269 mg/dL (70-105); Osmolality,Calculated 296 (280-300); Potassium 4.2 mEq/L (3.5-5.1); Sodium 137 mEq/L (136-145); Total Protein 7.1 g/dL (6.4-8.9); eGFR For African Americans > 60 (> 60); eGFR For Non-African Americans > 60 (> 60)
[2017-11-21] MEDS: *HR* Heparin 5,000 UNIT/ML VIAL SQ SCH ×2 (06:06→14:16)
[2017-11-21 07:25] VITALS: BP 118/83
[2017-11-21] MEDS: Furosemide 20 MG TABLET PO SCH (08:20)
[2017-11-21] MEDS: Lisinopril 20 MG TABLET PO SCH (08:20)
[2017-11-21] MEDS: Insulin LISPRO 300 UNITS/3 ML VIAL SQ SCH ×2 (08:21→12:56)
[2017-11-21] MEDS: Aspirin Enteric Coated 81 MG Tablet PO SCH (08:21)
--- NOTE | 2017-11-21 08:27 | Internal Med Progress Note ---
<Fidencio Echols - Last Filed: 11/21/17 11:25> Date of Encounter: 11/21/17 Time of Encounter: 08:25 - Assessment and plan (1) Acute respiratory failure with hypoxia and hypercapnia Current Visit: Yes Status: Acute Assessment and plan: Acute hypoxic hypercapnic respiratory failure secondary to acute COPD exacerbation due to community-acquired pneumonia Continue rocephin and azithormycin day #3 Steroids Nebulizers Continue oxygen supplementation Bipap prn (2) Acute exacerbation of chronic obstructive pulmonary disease (COPD) Current Visit: Yes Status: Acute Assessment and plan: Solu-Medrol 60 mg every 6 hours Duoneb every 4 hours BiPAP available as needed for the patient CPAP at night. Patient is requiring 3 L to maintain oxygen saturation. Patient denies use of home oxygen use. (3) Hypoxia Current Visit: Yes Status: Acute Assessment and plan: Patient currently on 3 L nasal cannula to maintain oxygen saturation in mid 90s (4) Diabetes Current Visit: Yes Status: Chronic Assessment and plan: Patient has insulin ordered for glucose control while in the hospital. Qualifiers: Diabetes mellitus type: type 2 Diabetes mellitus complication detail: with other skin complication Diabetes mellitus alf insulin use: without buttermaker use (5) HLD (hyperlipidemia) Current Visit: Yes Status: Chronic Assessment and plan: Chronic history of hyperlipidemia The patient's lipid panel seems to be well-controlled Continue patient's simvastatin at this time. Qualifiers: Hyperlipidemia type: pure hypercholesterolemia Qualified Code(s): E78.00 - Pure hypercholesterolemia, unspecified; E78.0 - Pure hypercholesterolemia (6) HTN (hypertension) Current Visit: Yes Status: Chronic Assessment and plan: The possible history of chronic hypertension. Continue patient's home medication of lisinopril. Qualifiers: Hypertension type: essential hypertension Qualified Code(s): I10 - Essential (primary) hypertension (7) Arthritis Current Visit: Yes Status: Chronic Assessment and plan: Chronic history of arthritis Tramadol ordered for pain control (8) Chronic cellulitis Current Visit: Yes Status: Acute Assessment and plan: Hx of chronic cellulitis Currently wrapped (9) Morbid obesity with body mass index of 70 and over in adult Current Visit: Yes Status: Acute (10) DVT prophylaxis Current Visit: Yes Status: Acute Assessment and plan: Patient is on heparin 5000 units subcutaneous every 8 hours for DVT prophylaxis. - Time Spent With Patient 25 - 35 minutes - Subjective Interval history: The patient states that he is slowly getting better but is more short of breath than normal. Patient states that he only uses CPAP at night when he sleeps. States that he does not wear oxygen at home. Patient states that he was required BiPAP intermittently while here in the hospital. He is still currently on 3 L of oxygen. States that last night was better than the night before and continues to improve. - Constitutional Vitals: Temp Pulse Resp BP Pulse Ox 97.9 F 72 17 118/83 95 11/21/17 07:00 11/21/17 07:00 11/21/17 08:19 11/21/17 07:00 11/21/17 08:19 General appearance: Present: cooperative, A&O X 3, morbidly obese, pleasant, severe distress (Respiratory), answers questions appropriately - Head Head exam: Present: atraumatic, normocephalic - Neck Neck exam general surgery: Present: full ROM, normal inspection, trachea midline - Respiratory Respiratory exam: Present: wheezes (Mild wheezes bilaterally) Additional comments: Increased work of breathing - Cardiovascular Cardiovascular exam: Present: RRR, +S1, +S2. Absent: diastolic murmur, gallop, rubs, systolic murmur - Extremities Exam Extremities exam: Present: pedal edema (Edema bilateral lower extremities) Additional comments: Chronic cellulitis to the left lower extremity - Neurological Exam Neurological exam: Present: oriented X3, no focal deficits. Absent: facial droop, speech deficit - Psychiatric Psychiatric exam: Present: normal affect, normal mood - Skin Additional comments: Chronic cellulitis of the left lower extremity. This is currently wrapped. Internal Medicine: Result - Labs CBC & Chem 7: 11/21/17 02:43 11/21/17 02:43 Labs: Short CBC 11/20/17 11/21/17 Range/Units 08:55 02:43 WBC 6.7 7.5 (4.3-11.1) K/mcL Hgb 13.7 13.0 (12.9-16.9) g/dL Hct 44.6 42.8 (37.5-50.1) % Plt Count 319 304 (140-400) K/mcL Neutrophils # 5.8 6.8 (1.6-8.9) K/mcL BMP 11/20/17 11/21/17 08:55 02:43 Sodium 135 L 137 Potassium 4.3 4.2 Chloride 97 L 98 Carbon Dioxide 31 H 32 H BUN 14 19 Creatinine 0.67 L 0.61 L Glucose 267 H 269 H Calcium 9.3 9.1 Liver Function 11/20/17 11/21/17 Range/Units 08:55 02:43 Total Bilirubin 0.4 0.3 (0.3-1.0) mg/dL AST 15 17 (13-39) Units/L ALT 19 20 (7-52) Units/L Alkaline Phosphatase 75 66 (34-104) Units/L Albumin 4.2 3.9 (3.5-5.7) g/dL - ABG Interpretation ABG results: ABG ABG pH 7.31 pH Units (7.32-7.45) L 11/19/17 15:45 ABG pCO2 64 mmHg (35-45) H 11/19/17 15:45 ABG pO2 99 mmHg (85-104) 11/19/17 15:45 ABG O2 Saturation 97 % (95-98) 11/19/17 15:45 PT/INR, D-dimer PT 12.0 Seconds (9.4-12.1) 11/19/17 12:11 Consult Discharge Plan - Plan Additional Instructions: Please follow up with her primary care provider at the next appointment Please continue to take the Cefdinir and azithromycin Please take her steroids as a taper as directed Please wear her oxygen as directed at home. Referrals: Jose F Valle MD [Primary Care Provider] - 11/29/17 10:15 am Prescriptions: Azithromycin [Zithromax Tri-Tarik] 500 mg PO DAILY #1 tablet Cefdinir [Omnicef] 300 mg PO BID #10 capsule predniSONE [PredniSONE] See Taper PO DAILY #42 tablet <Kameron Saeed H - Last Filed: 11/21/17 13:39> Date of Encounter: 11/21/17 - Constitutional Vitals: Temp Pulse Resp BP Pulse Ox 97.9 F 72 17 118/83 94 11/21/17 07:00 11/21/17 07:00 11/21/17 08:19 11/21/17 07:00 11/21/17 09:00 Internal Medicine: Result - Labs CBC & Chem 7: 11/21/17 02:43 11/21/17 02:43 Labs: Short CBC 11/21/17 Range/Units 02:43 WBC 7.5 (4.3-11.1) K/mcL Hgb 13.0 (12.9-16.9) g/dL Hct 42.8 (37.5-50.1) % Plt Count 304 (140-400) K/mcL Neutrophils # 6.8 (1.6-8.9) K/mcL BMP 11/21/17 02:43 Sodium 137 Potassium 4.2 Chloride 98 Carbon Dioxide 32 H BUN 19 Creatinine 0.61 L Glucose 269 H Calcium 9.1 Liver Function 11/21/17 Range/Units 02:43 Total Bilirubin 0.3 (0.3-1.0) mg/dL AST 17 (13-39) Units/L ALT 20 (7-52) Units/L Alkaline Phosphatase 66 (34-104) Units/L Albumin 3.9 (3.5-5.7) g/dL - ABG Interpretation ABG results: ABG ABG pH 7.31 pH Units (7.32-7.45) L 11/19/17 15:45 ABG pCO2 64 mmHg (35-45) H 11/19/17 15:45 ABG pO2 99 mmHg (85-104) 11/19/17 15:45 ABG O2 Saturation 97 % (95-98) 11/19/17 15:45 PT/INR, D-dimer PT 12.0 Seconds (9.4-12.1) 11/19/17 12:11 - Attending Attestation Patient agreed to be discharged today, oxygen at home will be provided
[2017-11-21] MEDS ORDERED: Cefdinir 300 MG CAPSULE PO SCH (11:15)
--- NOTE | 2017-11-21 11:16 | Discharge Summary ---
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 mcfp use (5) HLD (hyperlipidemia) Priority: Secondary Status: Chronic Qualifiers: Hyperlipidemia type: pure hypercholesterolemia Qualified Code(s): E78.00 - Pure hypercholesterolemia, unspecified; E78.0 - Pure hypercholesterolemia (6) HTN (hypertension) Priority: Secondary Status: Chronic Qualifiers: Hypertension type: essential hypertension Qualified Code(s): I10 - Essential (primary) hypertension (7) Arthritis Priority: Secondary Status: Chronic (8) Chronic cellulitis Priority: Secondary Status: Acute (9) Morbid obesity with body mass index of 70 and over in adult Priority: Secondary Status: Acute (10) DVT prophylaxis Priority: Secondary Status: Acute - Discharge Medications Prescriptions: Azithromycin [Zithromax Tri-Tarik] 500 mg PO DAILY #1 tablet Cefdinir [Omnicef] 300 mg PO BID #10 capsule predniSONE [PredniSONE] See Taper PO DAILY #42 tablet Home Medications: Albuterol Neb [Proventil Neb] 2.5 mg IH TID 11/19/17 [History] Aspirin [Lo-Dose Aspirin EC] 81 mg PO DAILY 11/19/17 [History] Furosemide [Lasix] 20 mg PO BID 11/19/17 [History] Lisinopril [Zestril] 20 mg PO DAILY 11/19/17 [History] Simvastatin [Zocor] 20 mg PO HS 11/19/17 [History] Tramadol HCl [Ultram] 50 mg PO QID PRN 11/19/17 [History] metFORMIN [Glucophage] 500 mg PO BIDWM 11/19/17 [History] Azithromycin [Zithromax Tri-Tarik] 500 mg PO DAILY #1 tablet 11/21/17 [Rx] Cefdinir [Omnicef] 300 mg PO BID #10 capsule 11/21/17 [Rx] predniSONE [PredniSONE] See Taper PO DAILY #42 tablet 11/21/17 [Rx] Allergies/Adverse Reactions: 3 Allergy/AdvReac Type Severity Reaction Status Date / Time No Known Allergies Allergy Verified 11/19/17 10:13 Date of admission: 11/19/17 14:11 Primary care physician: Jose F Valle MD Consults: 11/19/17 15:09 Consult to Senior Architectural Designer [CONS] Routine Reason for SW Consult: Please assess patient for possible home needs for post -discharge planning 11/19/17 15:10 Consult to Occupational Therapy [CONS] Routine Comment: Evaluate, develop and implement POC Reason for Consult: Patient reports unsteadiness with ambulation. Please assess patient for ambulation strength, stability, safety, and possible home assistive needs for post-discharge planning. 11/19/17 15:11 Consult to Physical Therapy [CONS] Routine Comment: Evaluate, develop and implement POC Reason for Consult: Patient reports unsteadiness with ambulation. Please assess patient for ambulation strength, stability, safety, and possible home assistive needs for post-discharge planning. 11/19/17 15:17 Consult to Diabetes Education [CONS] Routine Comment: Reason for Consult: Patient newly diagnosed w/diabetes recently. Requires education regarding diet, exercise, and blood glucose measurement. 11/19/17 16:37 Consult to Wound Care [CONS] Routine Reason for Consult: Patient has chronic cellulitis of the LLE. Please assess and make recommendations for daily wound care. Call Completed: Yes Discharging clinician: Fidencio Echols Anticipated date of discharge: 11/21/17 - Patient Status Disposition: Home, Self-Care Condition: Good Overall status at discharge: patient is progressing back to baseline - Discharge Instructions Follow Up With: Jose F Valle MD [Primary Care Provider] - 11/29/17 10:15 am Additional Instructions: Please follow up with her primary care provider at the next appointment Please continue to take the Cefdinir and azithromycin Please take her steroids as a taper as directed Please wear her oxygen as directed at home. - Diet and Activity Activity: increase activity as tolerated Diet: advance to your usual diet Interval History: The patient states that he is slowly getting better but is more short of breath than normal. Patient states that he only uses CPAP at night when he sleeps. States that he does not wear oxygen at home. Patient states that he was required BiPAP intermittently while here in the hospital. He is still currently on 3 L of oxygen. States that last night was better than the night before and continues to improve. Hospital course: Mr. Nieves is a 57 year old male that admitted to the hospital for acute respiratory failure with hypoxia and hypercapnia likely secondary to acute COPD exacerbation due to community-acquired pneumonia. The patient was started on antibiotics here in the hospital as well as being provided with steroids and supplemental oxygen. The patient states that he has continued to improve throughout his hospital stay. Patient would like to go home at this time. He is comfortable with being discharged with oxygen for at home due to increased oxygen requirement here in the hospital. Patient's lungs have significantly improved. Patient will be discharged home with prescription for the remainder of his antibiotics and for oxygen. - Time Spent with Patient Total time spent providing and/or coordinating discharge services: - Constitutional Vitals: Temp Pulse Resp BP Pulse Ox 97.9 F 72 17 118/83 95 11/21/17 07:00 11/21/17 07:00 11/21/17 08:19 11/21/17 07:00 11/21/17 08:19 General appearance: Present: cooperative, A&O X 3, morbidly obese, pleasant, severe distress (Respiratory), answers questions appropriately - Head Head exam: Present: atraumatic, normocephalic - Neck Neck exam general surgery: Present: full ROM, normal inspection, trachea midline - Respiratory Respiratory exam: Present: wheezes (Mild wheezes bilaterally) - Cardiovascular Cardiovascular exam: Present: RRR, +S1, +S2. Absent: diastolic murmur, gallop, rubs, systolic murmur - GI/Abdominal GI/Abdominal exam: Present: normal bowel sounds, soft, no peritoneal signs. Absent: distended, tenderness - Extremities Exam Extremities exam: Present: pedal edema (Bilateral lower extremity edema) - Neurological Exam Neurological exam: Present: oriented X3, no focal deficits. Absent: facial droop, speech deficit - Psychiatric Psychiatric exam: Present: normal affect, normal mood - Skin Additional comments: Chronic cellulitis to the left lower extremity. This is currently wrapped. <Kameron Saeed H - Last Filed: 11/21/17 13:42> Date of Encounter: 11/21/17 Date of admission: 11/19/17 14:11 Primary care physician: Jose F Valle MD Consults: 11/19/17 15:09 Consult to Senior Architectural Designer [CONS] Routine Reason for SW Consult: Please assess patient for possible home needs for post -discharge planning 11/19/17 15:10 Consult to Occupational Therapy [CONS] Routine Comment: Evaluate, develop and implement POC Reason for Consult: Patient reports unsteadiness with ambulation. Please assess patient for ambulation strength, stability, safety, and possible home assistive needs for post-discharge planning. 11/19/17 15:11 Consult to Physical Therapy [CONS] Routine Comment: Evaluate, develop and implement POC Reason for Consult: Patient reports unsteadiness with ambulation. Please assess patient for ambulation strength, stability, safety, and possible home assistive needs for post-discharge planning. 11/19/17 15:17 Consult to Diabetes Education [CONS] Routine Comment: Reason for Consult: Patient newly diagnosed w/diabetes recently. Requires education regarding diet, exercise, and blood glucose measurement. 11/19/17 16:37 Consult to Wound Care [CONS] Routine Reason for Consult: Patient has chronic cellulitis of the LLE. Please assess and make recommendations for daily wound care. Call Completed: Yes Hospital course: Mr. Nieves is a 57 year old male - Time Spent with Patient Total time spent providing and/or coordinating discharge services: - Constitutional Vitals: Temp Pulse Resp BP Pulse Ox 97.9 F 72 17 118/83 94 11/21/17 07:00 11/21/17 07:00 11/21/17 08:19 11/21/17 07:00 11/21/17 09:00 - Attending Attestation The patient was given the option to stay another night but he prefers to go home on oxygen. Acute hypoxic hypercapnic respiratory failure secondary to acute COPD exacerbation due to community-acquired pneumonia, unknown agent Continue cefdinir for 5 more days and azithromycin for one more day (additional prescription given for cefdinir 5 days) Taper prednisone Left lower extremity chronic cellulitis Morbid obesity I examined this patient and my medical decision-making was reviewed with the Resident Physician. I agree with the documented findings, disposition and treatment plan as described except to the extent set forth below.
[2017-11-21] MEDS ORDERED: predniSONE 20 MG TABLET PO ONE (14:05)
== END 2017-11-21 17:52 | disposition home or self-care (01) | DRG 190 ==
LOC: EMEROO 11:36 → 2NENU 14:11
PROVIDERS: ADMIT Internal Medicine; ATTEND Internal Medicine

== ENCOUNTER 2021-08-14 10:28 | Inpatient (IN) ==
[2021-08-14] MEDS ORDERED: levoFLOXacin 750 MG TABLET PO ONE (10:43)
[2021-08-14 11:28] LABS: Basophils % 0.5 %; Eosinophils # 0.2 K/mcL (0.0-0.6); Eosinophils % 2.4 %; Hematocrit 44.8 % (37.5-50.1); Hemoglobin 13.5 g/dL (12.9-16.9); Immature Granulocytes % 0.2 % (0-4); Lymphocytes % 15.5 %; Mean Corpuscular HGB Conc 30.1 g/dL (31.6-35.5); Mean Corpuscular Hemoglobin 25.3 pg (28.0-33.3); Mean Corpuscular Volume 83.9 fL (83.0-100.0); Mean Platelet Volume 10.4 fL (9.4-12.4); Monocytes # 0.3 K/mcL (0.0-1.3); Monocytes % 5.1 %; Neutrophils # 4.7 K/mcL (1.6-8.9); Platelet Count 280 K/mcL (140-400); Red Blood Count 5.34 M/mcL (4.19-5.50); Red Cell Distribution Width 18.5 % (11.5-14.5); Segmented Neutrophils % 76.3 %; White Blood Count 6.1 K/mcL (4.3-11.1)
[2021-08-14 12:05] LABS: Alanine Aminotransferase 32 Units/L (7-52); Albumin 4.1 g/dL (3.5-5.7); Albumin/Globulin Ratio 1.2 (1.1-2.2); Alkaline Phosphatase 133 Units/L (34-104); Aspartate Amino Transferase 22 Units/L (13-39); BUN/Creatinine Ratio 20 (6-26); Bilirubin,Direct 0.1 mg/dL (0.0-0.2); Bilirubin,Indirect 0.4 mg/dL (0.0-1.0); Bilirubin,Total 0.5 mg/dL (0.3-1.0); Blood Urea Nitrogen 12 mg/dL (6-20); Calcium 8.8 mg/dL (8.6-10.3); Carbon Dioxide 27 mEq/L (23-29); Chloride 100 mEq/L (98-107); Globulin 3.4 g/dL (2.4-3.5); Glucose 154 mg/dL (70-105); Osmolality,Calculated 287 (280-300); Potassium 4.4 mEq/L (3.5-5.1); Sodium 137 mEq/L (136-145); Total Protein 7.5 g/dL (6.4-8.9); Troponin I < 0.03 ng/mL (< 0.04); eGFR For African Americans > 60 (> 60); eGFR For Non-African Americans > 60 (> 60)
[2021-08-14] MEDS ORDERED: Furosemide 40 MG in 0.9 % Sodium Chloride 50 ML IVPB ONE (13:01)
[2021-08-14] MEDS ORDERED: Furosemide 40 MG/4 ML VIAL IVP ONE (13:15)
[2021-08-14] MEDS ORDERED: D5% in Water 1,000 ML IVC PRN (14:34)
[2021-08-14] MEDS ORDERED: Naloxone 0.4 MG/ML INJ IVP PRN (14:34)
[2021-08-14] MEDS ORDERED: Ondansetron 4 MG/2 ML VIAL IVP PRN (14:34)
[2021-08-14] MEDS ORDERED: *HR* Dextrose 50 % in Water (Syg) 50 ML SYRINGE IVP PRN (14:34)
[2021-08-14] MEDS ORDERED: Dextrose Gel 15 GM/37.5 ML TUBE PO PRN ×2 (14:34)
[2021-08-14] MEDS ORDERED: Acetaminophen 325 MG TABLET PO PRN (14:34)
[2021-08-14] MEDS ORDERED: Benzonatate 100 MG CAPSULE PO PRN (14:36)
[2021-08-14] MEDS ORDERED: Perflutren Lipid Microsphere 1.3 ML in 0.9 % Sodium Chloride 8.7 ML IVP PRN (14:36)
[2021-08-14] MEDS ORDERED: Ipratropium/Albuterol Neb 3 ML IH PRN (14:36)
[2021-08-14] MEDS: Azithromycin 500 MG in 0.9 % Sodium Chloride 250 ML IVPB SCH (16:07)
[2021-08-14] MEDS: predniSONE 20 MG TABLET PO SCH (16:07)
[2021-08-14] MEDS: Insulin LISPRO 300 UNITS/3 ML VIAL SUBQ SCH (16:09)
[2021-08-14] MEDS: Ipratropium/Albuterol Neb 3 ML IH SCH ×2 (16:58→20:48)
[2021-08-14] MEDS: Furosemide 40 MG/4 ML VIAL IVP SCH (20:36)
[2021-08-15 03:36] LABS: Basophils % 0.2 %; Hematocrit 41.8 % (37.5-50.1); Hemoglobin 12.6 g/dL (12.9-16.9); Immature Granulocytes % 0.2 % (0-4); Lymphocytes # 0.4 K/mcL (0.6-4.6); Lymphocytes % 7.6 %; Mean Corpuscular HGB Conc 30.1 g/dL (31.6-35.5); Mean Corpuscular Hemoglobin 25.1 pg (28.0-33.3); Mean Corpuscular Volume 83.4 fL (83.0-100.0); Mean Platelet Volume 10.8 fL (9.4-12.4); Monocytes # 0.1 K/mcL (0.0-1.3); Monocytes % 1.8 %; Neutrophils # 5.1 K/mcL (1.6-8.9); Platelet Count 278 K/mcL (140-400); Red Blood Count 5.01 M/mcL (4.19-5.50); Red Cell Distribution Width 18.4 % (11.5-14.5); Segmented Neutrophils % 90.2 %; White Blood Count 5.7 K/mcL (4.3-11.1)
[2021-08-15 03:52] LABS: BUN/Creatinine Ratio 30 (6-26); Blood Urea Nitrogen 28 mg/dL (6-20); Carbon Dioxide 22 mEq/L (23-29); Chloride 94 mEq/L (98-107); Glucose 393 mg/dL (70-105); Osmolality,Calculated 290 (280-300); Potassium 5.1 mEq/L (3.5-5.1); Sodium 129 mEq/L (136-145); eGFR For African Americans > 60 (> 60); eGFR For Non-African Americans > 60 (> 60)
[2021-08-15] MEDS: Ipratropium/Albuterol Neb 3 ML IH SCH ×4 (03:54→22:33)
[2021-08-15 04:28] LABS: Estimated Average Glucose 194 mg/dl; Hemoglobin A1C 8.4 %
[2021-08-15] MEDS: *HR* Enoxaparin 40 MG/0.4 ML SYRINGE SQ SCH (06:18)
[2021-08-15] MEDS: predniSONE 20 MG TABLET PO SCH (07:59)
[2021-08-15] MEDS: Furosemide 40 MG/4 ML VIAL IVP SCH ×2 (07:59→20:33)
[2021-08-15] MEDS: Insulin LISPRO 300 UNITS/3 ML VIAL SUBQ SCH ×3 (08:00→16:35)
[2021-08-15] MEDS ORDERED: Insulin DETEMIR 100 UNIT/ML X5UNITS SUBQ SCH (09:00)
[2021-08-15] MEDS: Nicotine 14 MG PATCH.TD24 TD SCH (09:18)
[2021-08-15] MEDS: Aspirin Enteric Coated 81 MG Tablet PO SCH (09:19)
[2021-08-15] MEDS: lisinopriL 20 MG TABLET PO SCH (09:19)
[2021-08-15] MEDS: Spironolactone 25 MG TABLET PO SCH (09:19)
[2021-08-15] MEDS: Insulin DETEMIR 100 UNIT/ML X5UNITS SUBQ SCH ×2 (09:19→20:24)
[2021-08-15 13:13] LABS: Adenovirus Not Detected (Not Detect); Bordetella Pertussis Not Detected (Not Detect); Chlamydophila pneumoniae Not Detected (Not Detect); Coronavirus 229E Not Detected (Not Detect); Coronavirus HKU1 Not Detected (Not Detect); Coronavirus NL63 Not Detected (Not Detect); Coronavirus OC43 Not Detected (Not Detect); Human Metapneumovirus Not Detected (Not Detect); Human Rhinovirus/Enterovirus Not Detected (Not Detect); Influenza A Subtype 2009 H1 Not Detected (Not Detect); Influenza B Not Detected (Not Detect); Mycoplasma pneumoniae Not Detected (Not Detect); Parainfluenza Virus 1 Not Detected (Not Detect); Parainfluenza Virus 2 Not Detected (Not Detect); Parainfluenza Virus 3 Not Detected (Not Detect); Parainfluenza Virus 4 Not Detected (Not Detect); Respiratory Syncytial Virus Not Detected (Not Detect); SARS-CoV-2 Not Detected (Not Detect)
[2021-08-15] MEDS: Azithromycin 500 MG in 0.9 % Sodium Chloride 250 ML IVPB SCH (14:30)
[2021-08-16 02:09] LABS: Basophils % 0.3 %; Eosinophils # 0.1 K/mcL (0.0-0.6); Eosinophils % 0.9 %; Hematocrit 40.2 % (37.5-50.1); Hemoglobin 12.4 g/dL (12.9-16.9); Immature Granulocytes % 0.2 % (0-4); Lymphocytes # 1.6 K/mcL (0.6-4.6); Lymphocytes % 24.7 %; Mean Corpuscular HGB Conc 30.8 g/dL (31.6-35.5); Mean Corpuscular Hemoglobin 25.9 pg (28.0-33.3); Mean Corpuscular Volume 83.9 fL (83.0-100.0); Mean Platelet Volume 10.6 fL (9.4-12.4); Monocytes # 0.6 K/mcL (0.0-1.3); Monocytes % 9.6 %; Neutrophils # 4.1 K/mcL (1.6-8.9); Platelet Count 273 K/mcL (140-400); Red Blood Count 4.79 M/mcL (4.19-5.50); Red Cell Distribution Width 18.6 % (11.5-14.5); Segmented Neutrophils % 64.3 %; White Blood Count 6.4 K/mcL (4.3-11.1)
[2021-08-16 02:26] LABS: BUN/Creatinine Ratio 28 (6-26); Blood Urea Nitrogen 25 mg/dL (6-20); Calcium 9.3 mg/dL (8.6-10.3); Carbon Dioxide 33 mEq/L (23-29); Chloride 96 mEq/L (98-107); Glucose 249 mg/dL (70-105); Osmolality,Calculated 293 (280-300); Potassium 4.3 mEq/L (3.5-5.1); Sodium 135 mEq/L (136-145); eGFR For African Americans > 60 (> 60); eGFR For Non-African Americans > 60 (> 60)
[2021-08-16] MEDS: Ipratropium/Albuterol Neb 3 ML IH SCH ×4 (04:28→20:51)
[2021-08-16] MEDS: *HR* Enoxaparin 40 MG/0.4 ML SYRINGE SQ SCH (05:35)
[2021-08-16] MEDS: Furosemide 40 MG/4 ML VIAL IVP SCH ×2 (07:52→21:44)
[2021-08-16] MEDS: Aspirin Enteric Coated 81 MG Tablet PO SCH (07:54)
[2021-08-16] MEDS: Nicotine 14 MG PATCH.TD24 TD SCH (07:54)
[2021-08-16] MEDS: predniSONE 20 MG TABLET PO SCH (07:54)
[2021-08-16] MEDS: Spironolactone 25 MG TABLET PO SCH (07:54)
[2021-08-16] MEDS: lisinopriL 20 MG TABLET PO SCH (07:54)
[2021-08-16] MEDS: Insulin LISPRO 300 UNITS/3 ML VIAL SUBQ SCH ×3 (07:55→17:30)
[2021-08-16] MEDS: Insulin DETEMIR 100 UNIT/ML X5UNITS SUBQ SCH ×2 (08:01→20:41)
[2021-08-16] MEDS: Azithromycin 250 MG TABLET PO SCH (15:16)
[2021-08-17 02:15] LABS: BUN/Creatinine Ratio 32 (6-26); Blood Urea Nitrogen 26 mg/dL (6-20); Calcium 9.3 mg/dL (8.6-10.3); Carbon Dioxide 34 mEq/L (23-29); Chloride 94 mEq/L (98-107); Glucose 243 mg/dL (70-105); Osmolality,Calculated 293 (280-300); Potassium 4.4 mEq/L (3.5-5.1); Sodium 135 mEq/L (136-145); eGFR For African Americans > 60 (> 60); eGFR For Non-African Americans > 60 (> 60)
[2021-08-17] MEDS: Ipratropium/Albuterol Neb 3 ML IH SCH ×4 (04:29→20:13)
[2021-08-17] MEDS: *HR* Enoxaparin 40 MG/0.4 ML SYRINGE SQ SCH (06:47)
[2021-08-17] MEDS ORDERED: Furosemide 40 MG/4 ML VIAL IVP SCH (09:00)
[2021-08-17] MEDS: lisinopriL 20 MG TABLET PO SCH (09:15)
[2021-08-17] MEDS: Aspirin Enteric Coated 81 MG Tablet PO SCH (09:16)
[2021-08-17] MEDS: Spironolactone 25 MG TABLET PO SCH (09:16)
[2021-08-17] MEDS: predniSONE 20 MG TABLET PO SCH (09:17)
[2021-08-17] MEDS: Nicotine 14 MG PATCH.TD24 TD SCH (09:17)
[2021-08-17] MEDS: Insulin LISPRO 300 UNITS/3 ML VIAL SUBQ SCH ×3 (09:20→18:42)
[2021-08-17] MEDS: Insulin DETEMIR 100 UNIT/ML X5UNITS SUBQ SCH ×2 (12:28→20:36)
[2021-08-17 13:32] LABS: Influenza A PCR Negative (Negative); Influenza B PCR Negative (Negative); Resp. Syncytial Virus PCR Negative (Negative)
[2021-08-17 14:06] LABS: SARS-CoV-2 by PCR (In House) Negative (Negative)
[2021-08-17] MEDS: Azithromycin 250 MG TABLET PO SCH (18:42)
[2021-08-17 19:46] VITALS: BP 104/63; PULSE 92; TEMP 97.6; O2SAT 90
== END 2021-08-17 20:45 | DRG 291 ==
LOC: EMEROOARM 10:28 → 3ANU 10:28 → SUATTDRO 14:12 → 3ANU 15:05 → SUATTDRO 08-15 17:27
PROVIDERS: ADMIT Internal Medicine; ATTEND Internal Medicine